=== PATIENT | female | born 1995 | race Caucasian/White ===

== ENCOUNTER → 2022-10-13 | Outpatient (CLI) | payer MEDICAID, SELFPAY ==
[2022-10-13 10:40] LABS: Absolute Lymphocyte Count 1.85 X10^3/uL (0.83-4.51); Absolute Neutrophil Count 3.7 X10^3/uL (2.0-7.7); Basophil# 0.04 X10^3/uL; Basophil% 0.7 % (0-1); Eosinophil# 0.09 X10^3/uL; Eosinophils% 1.5 % (0-5); Hematocrit 39.7 % (37-47); Hemoglobin 13.4 g/dL (12.0-15.0); Lymphocyte # 1.85 X10^3/ul (0.83-4.51); Lymphocyte % 30.7 % (19-41); Mean Corp Hgb Conc 33.8 g/dL (32-36); Mean Corpuscular Hgb 29.2 pg (27.0-32.0); Mean Corpuscular Volume 86.5 fL (81-99); Mean Platelet Vol. 9.4 fl (6.2-12.0); Monocyte# 0.36 X10^3/uL; NRBC Flagged by Analyzer 0 % (0-5); Neutrophil # 3.66 X10^3/uL (2.7-7.7); Neutrophil % 60.8 % (47-70); Platelet Count 317 K/mm3 (150-450); RBC Distribution Width CV 11.9 % (11.6-14.6); RBC Distribution Width SD 37.7 fl (35.1-43.9); Red Blood Count 4.59 M/mm3 (4.2-5.4)
[2022-10-13 11:26] LABS: NATERA MAILED SPECIMEN
[2022-10-13 11:52] LABS: HIV - WCH Non-Reactive (Nonreactive); Hepatitis B Surface Antigen Non-Reactive (Nonreactive); Hepatitis C Antibody Non-Reactive (Nonreactive); Rubella IgG Non-Reactive (Nonreactive); Syphilis Antibodies Non-reactive
[2022-10-17 07:07] LABS: Chlamydia By Nucleic Acid AMP Negative (Negative); Gonococcus By Nucleic Acid AMP Negative (Negative)
[2022-10-21 20:43] LABS: HPV Reflexed? NOT INDICATED
== END | disposition home or self-care (01) ==
PROVIDERS: Referring Provider Obstetrics & Gynecology; Visit Provider Obstetrics & Gynecology
DX: O09.90 Supervision of high risk pregnancy, unspecified, unspecified trimester (principal); Z3A.00 Weeks of gestation of pregnancy not specified
CPT/HCPCS: 36415; 85025; 86703; 86762; 86780; 86803; 86850; 86900; 86901; 87086; 87088; 87186; 87340; 87491; 87591; 88175; G0145

== ENCOUNTER 2022-12-22 18:55 | Inpatient (IN) | payer MEDICAID, SELFPAY ==
--- NOTE | 2022-12-22 | PLAC_PTH ---
PATIENT: HUE PERALTA LOC: WP U#:[id number] AGE/SX: 27 ROOM: WP021 RE12/22/[address]: Dr. Mariela Abbasi MD : 1995 BED: 1 DIS: 12/23/2022 SPEC #: [id number] RECD: 12/23/22 10:40 STATUS: ISAMAR LILIA #: [id number] ESPERANZA: 12/22/22 00:[address]: Mariela Abbasi DEPT: SURGICAL PATHOLOGY RECD BY: Evangelista Carroll Tissues: Placenta, NOS Procedures: Surgery Specimen Level V HEADER OPERATION: Vaginal delivery PRE-OP DIAGNOSIS: demise TISSUE SUBMITTED: Placenta MICROSCOPIC DIAGNOSIS Ballesteros placenta (117 gm): Placental disc: Immature placenta consistent with age. Focal acute vasculitis of superficial placental vessels. Mild chronic deciduitis. Mildly increased intraparenchymal fibrin plaques. Benign inclusion cysts. Umbilical Cord: Trivascular with no inflammation. Placental membranes: No pathologic change. AM:gonzalez 12/27/2022 MICROSCOPIC DESCRIPTION Slides are reviewed. GROSS DESCRIPTION SPECIMEN: PLACENTA / CLINICAL INFORMATION: A. Weight: Not noted B. Gestational Age: 19 weeks C. Sex: Not noted PLACENTAL WEIGHT (POST FIXATION): 117 gm PLACENTAL DIMENSIONS: 10.5 x 10.0 x 2.0 cm PLACENTAL SHAPE: Usual ovoid PLACENTAL WEIGHT FOR GESTATIONAL AGE: Within 10-99th percentile MEMBRANES - Present A. Insertion: Marginal B. Site of rupture from edge: At edge of placental disc C. Color of membrane: Zeng-ravi D. Abnormalities: None UMBILICAL CORD - Present A. Color: Zeng-ravi B. Insertion: Central C. Length: 39.0 cm D. Diameter: 0.6 cm E. Number of vessels: Cannot be assessed due to small diameter. F. Abnormalities: None PLACENTAL DISC - Present A. Color of surface: Zeng-ravi B. surface abnormalities: Two cysts are noted close to the insertion of the umbilical cord measuring 0.7 and 1.5 cm in greatest dimension. C. Maternal cotyledons: Intact with minimal tears. Maternal surface is partly disrupted. D. Attached retro placental clot: No clot E. Cut surface: Dark red and spongy F. Lesions: None G. Separate clot: Multiple blood clots are noted at the end of the placenta weighing in aggregate 19 gm and measuring in aggregate 5.5 x 5.0 x 2.5 cm. SECTIONS SUBMITTED: 1. Membrane roll 2. Cord, end inked black 3. Body of placenta with cyst on surface 4. Placental disc, and maternal surfaces 5. Placental disc, and maternal surfaces 6. Placental disc, and maternal surfaces LUIS:gonzalez 12/26/2022 TC:2 CPT: 80580
[2022-12-22 19:37] VITALS: BMI 23.3
[2022-12-22] MEDS: Lactated Ringers 1,000 ML 50 ML IV (19:45)
[2022-12-22] MEDS: 0.9% Saline Lock 10 ML Syringe IV (19:45)
[2022-12-22 20:07] VITALS: BP 129/78; PULSE 79; O2SAT 96
[2022-12-22 20:13] LABS: Absolute Neutrophil Count 3.2 X10^3/uL (2.0-7.7); Basophil# 0.03 X10^3/uL; Basophil% 0.4 % (0-1); Eosinophil# 0.11 X10^3/uL; Eosinophils% 1.6 % (0-5); Hematocrit 35.7 % (37-47); Hemoglobin 11.9 g/dL (12.0-15.0); Lymphocyte % 40.2 % (19-41); Mean Corp Hgb Conc 33.3 g/dL (32-36); Mean Corpuscular Volume 89.9 fL (81-99); Mean Platelet Vol. 10.3 fl (6.2-12.0); Monocyte# 0.66 X10^3/uL; Monocyte% 9.8 % (0-10); NRBC Flagged by Analyzer 0 % (0-5); Neutrophil # 3.17 X10^3/uL (2.7-7.7); Neutrophil % 47.4 % (47-70); Platelet Count 270 K/mm3 (150-450); RBC Distribution Width CV 13.1 % (11.6-14.6); RBC Distribution Width SD 42.9 fl (35.1-43.9); Red Blood Count 3.97 M/mm3 (4.2-5.4); White Blood Count 6.7 K/mm3 (4.4-11.0)
[2022-12-22 20:31] LABS: Thyroid Stim Hormone (TSH) 3.26 uIU/mL (0.358-3.74)
[2022-12-22 20:51] LABS: Syphilis Antibodies Non-reactive
--- NOTE | 2022-12-22 21:42 | HP.PCM.OB_ITS ---
HPI - General General Date of Admission: 12/22/22 HPI Narrative HUE PERALTA, is a 27 F who presents with IUFD diagnosed at anatomy scan. she denies any vb lof. Maternal Data Information MOE Calculator Estimated Delivery Date Method Current WG Current Estimate 05/17/23 LMP (Certain) 19w 2d Other Estimates 05/18/23 Ultrasound #1 19w 1d PFSH PFSH Medical History (Updated 12/22/22 @ 19:47 by Marifer Graves) Headache depression Home Medications PNV no.63-iron,carbonyl 27mg-folic acid 800 mcg-dha 200 mg capsule 1 cap PO DAILY 10/06/22 [History Last Taken 12/21/22] doxylamine 10 mg-pyridoxine (vit B6) 10 mg tablet,delayed release (Diclegis) 1 tab PO TID PRN nausea 30 days #60 tabs 11/17/22 [Rx Last Taken 12/22/22] Allergy/AdvReac Type Severity Reaction Status Date / Time No Known Allergies Allergy Verified 12/22/22 19:39 Family History Sister Kidney disease Surgical History Hx of section Social History adopted: No household members: family number of children: 2 current occupational status: employed current occupation: sub teacher pets and animals: Yes pets and animals: dog(s) history of recent travel: No sexually active: Yes Smoking Status: Never smoker alcohol intake: never substance use type: does not use caffeine: Yes Type: carbonated beverages seatbelt use: always do you feel safe at home: Yes additional social history: - Christian History 3 Elective abortions Hx Para 2 Spontaneous abortions Hx # Term Pregnancies 2 Ectopic pregnancies Hx # Pregnancies Multiple births # of living children 2 Past Pregnancies Del. Date Name GA/Weeks Outcome Route Bth Weight Infant Gen Labor Lgth Anesthesia Del Locatn Provider FOB 05/23/18 Nahid 40 live - full term 8lbs 4oz Male epi dural union 01/15/21 Inze 40 live - full term 7lbs 3oz Female epidural pitkin Visit Details Expected Delivery Route/Plan TOLAC patient counseled regarding risks/benefits of trial of labor versus repeat . ACOG/uptodate education given to patient. [] % likelihood of success per calculator TOLAC consent form signed: [] Labor Preferences- CB/BF classes: [] labor support person: [] labor intervention preferences: [] pain management options preferred: [] cut cord/dad catch: [] : [] PP control planned: [] discussed possible routes of delivery and associated risks: [] special requests: [] Plans Covid status: [] Flu vaccine: [] Tdap vaccine: [] Rhogam: [] LARC form signed: [] Problem list reviewed and updated with the most current plan of care details and appropriate orders placed. Relevant counseling for the gestational age provided. Continue routine care and follow up unless otherwise noted in visit notes/problem list details OB Flowsheet Initial Weight: Not Recorded Date -?-?-?-?-?-?-?-?-?-?-?-?- EGA Weight BP Urine Prot -?-?-?-?-?-?-?-?-?-?-?-?- Glucose FHR FuHt Pres Dilation -?-?-?-?-?-?-?-?-?-?-?-?- Effaced St Visit Note 10/13/22 -?-?-?-?-?-?-?-?-?-?-?-?- 9w 1d 119 lb 118/76 -?-?-?-?-?-?-?-?-?-?-?-?- 175 -?-?-?-?-?-?-?-?-?-?-?-?- SM- CRL 2 cm con s with LMP 11/17/22 -?-?-?-?-?-?-?-?-?-?-?-?- 14w 1d 118 lb 4 oz 122/74 1+ -?-?-?-?-?-?-?-?-?-?-?-?- Negative 169 -?-?-?-?-?-?-?-?-?-?-?-?- JV- lots of ques tions today. girl on nipt! plan for 41 week rpt section if no labor. 12/14/22 -?-?-?-?-?-?-?-?-?-?-?-?- 18w 0d 124 lb 120/70 Negative -?-?-?-?-?-?-?-?-?-?-?-?- Negative 163 -?-?-?-?-?-?-?-?-?-?-?-?- MH-No VB Nausea improved. 12/21/22 -?-?-?-?-?-?-?-?-?-?-?-?- 19w 0d 133/88 -?-?-?-?-?-?-?-?-?-?-?-?- -?-?-?-?-?-?-?-?-?-?-?-?- JV- pt was in to see [facility] today for her anatomy scan. She was found to have a demise measuring 16 weeks 5 days. we discussed that because heart tones were heard last week, this likely was a case of growth restriction caused by an unknown cause at this time. we discussed treatment options and she would like to hold the baby if possible. plan for IOL tomorrow night. ROS Constitutional Constitutional: Reports systems reviewed and no addt'l complaints, except as documented Eyes Eyes: Denies change in vision ENT HEENT: Reports systems reviewed and no addt'l complaints, except as documented; Denies headache(s) Cardiovascular Cardiovascular: Reports systems reviewed and no addt'l complaints, except as documented; Denies chest pain or dyspnea Respiratory/Chest Respiratory/Chest: Reports systems reviewed and no addt'l complaints, except as documented Gastrointestinal Gastrointestinal: Reports systems reviewed and no addt'l complaints, except as documented; Denies abdominal pain Genitourinary Genitourinary: Reports systems reviewed and no addt'l complaints, except as documented, contractions Details: present (irregular) and movement De tails: present; Denies dysuria or genital lesions Musculoskeletal Musculoskeletal: Reports systems reviewed and no addt'l complaints, except as documented Neurologic Neurologic: Reports systems reviewed and no addt'l complaints, except as documented Endocrine Endocrinology: Reports systems reviewed and no addt'l complaints, except as documented Vital Signs Vital Signs Vital Signs: 12/22/22 20:07 12/22/22 20:07 12/22/22 20:07 Pulse Rate 79 Blood Pressure 129/78 H BP Systolic 129 BP Diastolic 78 Pulse Ox 96 Weight Weight: 123 lb 7.342 oz Body Mass Index (BMI) 23.3 Physical Exam Const alert, oriented x3, no apparent distress and healthy appearing HEENT normocephalic and moist oral mucous membranes Head and Scalp: atraumatic Neck full ROM, no lymphadenopathy, supple and thyroid normal General: trachea midline Lymph Lymphatic: no lymphadenopathy noted Chest inspection of chest normal Resp normal respiratory effort Cardio regular rate GI normal to inspection, nondistended, normoactive bowel sounds, soft to palpation and non-tender Inspection: gravid Extremity normal to inspection General Extremity: Negative for edema Skin no rashes or lesions noted Neuro no focal motor deficits and deep tendon reflexes 2+ bilaterally Motor Exam: strength 5/5 throughout and clonus absent Psych mental status grossly normal Labs Labs Labs: Blood Type O POSITIVE Antibody Screen NEGATIVE Hct 35.7 % (37-47) L Hgb 11.9 g/dL (12.0-15.0) L Syphilis Total Ab Non-reactive Rubella IgG Antibody Non-Reactive (Nonreactive) Hep Bs Antigen Non-Reactive (Nonreactive) Chlamydia DNA (AUGUSTUS) Negative (Negative) Neisseria gonorrhoeae DNA (AUGUSTUS) Negative (Negative) HIV 1&2 Antibody Non-Reactive (Nonreactive) Miscellaneous Test Pending Assessment & Plan (1) demise: COMMENT: 19 weeks gestation (2) Rubella non-immune status, antepartum: COMMENT: MMR pp (3) GBS (group B Streptococcus carrier), +RV culture, currently : COMMENT: PCN in labor (4) Nausea and vomiting in : COMMENT: improved (5) Previous delivery affecting : COMMENT: 8 lb baby then cs after pushing 3 hrs 7lb baby- asynclitic. plan TOLAC (6) Desires (vaginal after ) trial: COMMENT: C/S-second for malpresentation (7) Supervision of high risk , antepartum: COMMENT: PRR MOE 05/17/23 PC Inez Whitfield Christian (8) : QUALIFIERS: Weeks of gestation: 14 weeks Qualified Code(s): Z3A.14 - 14 weeks gestation of COMMENT: NIPT low risk PLAN: Plan proceed with cytotec IOL. labs ordered
[2022-12-22] MEDS: miSOPROStol 200 MCG Tablet 600 MCG VAGINAL (21:56)
[2022-12-22 22:11] VITALS: BP 132/84; PULSE 68; TEMP 36.6; O2SAT 97
[2022-12-23] VITALS (22 sets, daily range): BP systolic 101–134; BP diastolic 60–83; PULSE 69–101; RESP 16; TEMP 36.2–37.6; O2SAT 95–98
[2022-12-23] MEDS: miSOPROStol 200 MCG Tablet 400 MCG VAGINAL (02:00)
[2022-12-23] MEDS: fentaNYL 100 MCG/2 ML Ampul IV ×2 (04:46→06:59)
[2022-12-23] MEDS: 0.9% Saline Lock 10 ML Syringe IV (04:47)
[2022-12-23] MEDS: oxyCODONE 5 MG Tablet PO (06:27)
[2022-12-23] MEDS: Oxytocin 15 Units/NS 250ml 15 UNITS/250 ML IV.SOLN 83 UNITS IV (08:10)
[2022-12-23] MEDS: Oxytocin 10 UNITS/ML Vial IM (08:12)
[2022-12-23 09:36] LABS: Pathology Specimen OB SEE PATHOLOGY REPORT
--- NOTE | 2022-12-23 10:25 | EX.PCM.OBRPT ---
Assessment & Plan (1) demise: COMMENT: 19 weeks gestation (2) Rubella non-immune status, antepartum: COMMENT: MMR pp (3) GBS (group B Streptococcus carrier), +RV culture, currently : COMMENT: PCN in labor (4) Nausea and vomiting in : COMMENT: improved (5) Previous delivery affecting : COMMENT: 8 lb baby then cs after pushing 3 hrs 7lb baby- asynclitic. plan TOLAC (6) Desires (vaginal after ) trial: COMMENT: C/S-second for malpresentation (7) Supervision of high risk , antepartum: COMMENT: PRR MOE 05/17/23 PC NahidInez Christian (8) : QUALIFIERS: Weeks of gestation: 14 weeks Qualified Code(s): Z3A.14 - 14 weeks gestation of COMMENT: NIPT low risk (9) Vaginal delivery: COMMENT: demise 19 week IOL 19 week girl Elaine Maternal Data Information MOE Calculator Estimated Delivery Date Method Current WG Current Estimate 05/17/23 LMP (Certain) 19w 2d Other Estimates 05/18/23 Ultrasound #1 19w 1d Vaginal Delivery Operative Information Date of Procedure: 12/23/22 Pre-Operative Diagnosis: see a/p diagnoses Post-Operative Diagnosis: same Surgery / Procedure Performed: Type of Anesthesia: None Special Medications: none Estimated Blood Loss: 400 Fluids Replaced: crystalloid Findings Description of Procedure: bedside ultrasound was performed upon initial evaluation and induction and confirmed demise with no FHT prsent or color flow, normal cody. infant vertex. patient was induced with cytotec overnight, managed pain with fentayl and oral oxy. ; she had increased cramping and was 3 cm dilated, deliver spontaneously the entire infant without complicated. the cord was cute, no gross abnormalities seen to the fetus or the cord. The perineum and vagina were inspected and noted to have no laceration. EBL was 400cc after the placenta delivered spontaneously over an hour later and was noted to be intact with no abnormalities seen. Patient tolerated delivery well. Placental Delivery Description: Spontaneous Placenta Disposition: [facility] Cord Vessel Description: 3 Vessels Cord Entanglement: None Post Vaginal Delivery Medications Given After Delivery: - (Pitocin) Episiotomy Description: None Complication Complications: None Procedures Urinary/Genital 52xxx-59xxx: [id number] delivery only
--- NOTE | 2022-12-23 10:32 | DCINST_ITS ---
Discharge Instructions Diet Discharge Diet: No restrictions Activity Discharge Activity: Return to Normal Activity, May Not Drive (while taking narcotic pain medications.) and May Shower May resume sexual activity in: 4-6 weeks Dressing / Incision Call your doctor if your incision/area has: Continuous Slow Oozing, Sudden Increased Bleeding, Increased Pain/ Swelling, Increased Redness and Foul Smelling Discharge Follow Up Care Please Follow Up With: Mariela Abbasi MD When: Call [phone] to make an appointment with your doctor in 6 weeks. If you had elevated blood pressure or 4th degree laceration, you will need to be seen in 2 weeks. Test Results: Test results from this visit will be discussed in further detail at your follow- up appointment, if applicable. Discharge Plan Admission Admit Date/Time: 12/22/22 18:55 Attending Provider: Mariela Abbasi Discharge Orders/Prescriptions Prescriptions: No Action PNV no.63-iron,yxyjzqxi-VT-een 27 mg iron- 800 mcg-200 mg capsule 1 cap PO DAILY doxylamine-pyridoxine (vit B6) [Diclegis] 10-10 mg tablet,delayed release (DR/EC) 1 tab PO TID PRN (Reason: nausea) 30 Days Qty: 60 4RF
--- NOTE | 2022-12-23 10:35 | NURSING ---
1035- IBCLC in room to round with family. Pt. expressed desire to maybe pump and donate her milk if it comes in, in honor of infant. Discussion had on pumping, breast stimulation, and ways to use/donate milk if pt desires. Encouragement and support given. Pt and FOB well engaged in conversation and appreciative of support. Pt. is still currently nursing her 2 year old.
--- NOTE | 2022-12-23 11:09 | CHAPLAIN ---
Type of Pastoral Visit _x__ Initial Visit ___ Follow-up Visit ___ On-call Visit ___ General Patient Visit ___ Spiritual Assessment ___ Family Conference _x__ Bereavement ___ Rapid Response ___ Code Blue ___ Other (describe below) Pastoral Care Referral From _x__ Patient _x__ Family _x__ Nurse ___ Physician ___ Care Information Associate ___ Coiled Tubing Operator ___ Other (describe below) Sacrament/Intervention _x__ Active listening ___ Anointing _x__ Protestant _x__ Bereavement ___ Communion ___ Leelee exploration ___ ___ Life review _x__ Prayer ___ Reconciliation ___ Sacrament of Sick _x__ Supportive presence ___ Wedding ___ Other (describe below) Pastoral Comments demise of the infant; parents requested episcopal for infant; met with parents for support and comfort; officiated episcopal and offered white susanna, blanket, and certificate; time to support in grief, presence and prayer
--- NOTE | 2022-12-23 15:18 | CASEMGMT ---
Social Work Labor and Delivery Unit ? Summary:?Sw received social work consult due to mother of baby (NUVIA Mcclain) coming into unit due to discovering demise when she went to her 20 week anatomy appointment. - Sw spoke to bedside RN to discuss current level of distress/ social concern. Bedside RN stated patient had delivered and they are processing their grief appropriately. - Sw presented to bedside and introduced self to patient and her . Sw provided active listening and ongoing emotional support. - Sw provided parents with the space to say what they wanted and to ask any questions. - Sw provided parents with literature to help them process their loss, and assessed for any needs or other concerns. - Parents state that they have a lot of supports from family members, friends and their sikh. Parents denied any needs at this time. ? Assessment:??Parents observed to be grieving appropriately given their dire circumstances. Parents asked appropriate questions about how to have this difficult conversation with their children. observed to be very supportive, loving and caring towards patient. ? Intervention:?Activev listening, counseling, support and space provided to parents to process their loss as they needed. ? Plan:??When medically ready patient will be discharged and baby will be picked up by Home chosen by parents. ? No other services requested or indicated. Royal Mosquera, SEISMOGRAPH OPERATOR, BALLET TEACHER
--- NOTE | 2022-12-28 20:28 | NURSING ---
Follow up phone call completed by this RN Pt reports feeling a sense of peace since delivery of her daughter Elaine at 19.1 weeks. Pt told this RN she is eating and sleeping, feels as her and her are coping well with the loss of Elaine at this time. Pt encouraged to reach out to or [facility] if she feels as her family need additional resources. Pt agreeable to this. Pts initial plan was to become a breast milk donor. pt reports pumping became overwhelming to her and was saddened she did not have a baby at home to breastfeed. pts plan at this time is to stop pumping to encourage milk production. pt encouraged to call unit if questions arise for .
== END 2022-12-23 12:40 | disposition home or self-care (01) | DRG 560 ==
PROVIDERS: Admitting Provider Obstetrics & Gynecology; Visit Provider Obstetrics & Gynecology
DX: O36.4XX0 Maternal care for intrauterine death, not applicable or unspecified (principal); Z37.1 Single stillbirth; O21.0 Mild hyperemesis gravidarum; O34.219 Maternal care for unspecified type scar from previous cesarean delivery; O99.824 Streptococcus B carrier state complicating childbirth; Z3A.19 19 weeks gestation of pregnancy
CPT/HCPCS: 76815; 83036; 84443; 85025; 86780; 86850; 86900; 86901; 88307; 99221; J7120; A4216; G0378

== ENCOUNTER → 2023-03-17 | Outpatient (CLI) | payer MEDICAID, SELFPAY ==
[2023-03-17 13:33] LABS: hCG Titer Quant., Serum 29 mIU/mL (1-3)
[2023-03-21 16:09] LABS: Anti-Cardiolipin Ab, IgA, Qn < 9 APL U/mL (0-11); Anti-Cardiolipin Ab, IgG, Qn < 9 GPL U/mL (0-14); Anti-Cardiolipin Ab, IgM, Qn 13 MPL U/mL (0-12); Beta-2-Glycoprotein I IgA <9 (0-25); Beta-2-Glycoprotein I IgG <9 (0-20); Beta-2-Glycoprotein I IgM <9 (0-32); Dilute Prothrombin Time (dPT) 38.8 sec (0.0-47.6); Dilute Russell Viper Venom 40.8 sec (0.0-47.0); Interpretation Comment: (.); PTT-LA 36.8 sec (0.0-43.5); Thrombin Time 19.4 sec (0.0-23.0); dPT Confirm Ratio 1.05 Ratio (0.00-1.34)
== END | disposition home or self-care (01) ==
LOC: LAB 11:57
PROVIDERS: Referring Provider Obstetrics & Gynecology; Visit Provider Obstetrics & Gynecology
DX: N96 Recurrent pregnancy loss (principal); N91.2 Amenorrhea, unspecified
CPT/HCPCS: 36415; 84702; 86146; 86147

== ENCOUNTER → 2023-03-19 | Outpatient (CLI) | payer MEDICAID, SELFPAY ==
[2023-03-19 11:21] LABS: hCG Titer Quant., Serum 32 mIU/mL (1-3)
== END | disposition home or self-care (01) ==
LOC: LAB 10:34
PROVIDERS: Visit Provider Obstetrics & Gynecology
DX: O26.859 Spotting complicating pregnancy, unspecified trimester (principal); Z3A.00 Weeks of gestation of pregnancy not specified
CPT/HCPCS: 36415; 84702

== ENCOUNTER → 2023-03-21 | Outpatient (CLI) | payer MEDICAID, SELFPAY ==
[2023-03-21 11:41] LABS: hCG Titer Quant., Serum 31 mIU/mL (1-3)
== END | disposition home or self-care (01) ==
LOC: PAVLAB 10:15
PROVIDERS: Referring Provider Obstetrics & Gynecology; Visit Provider Obstetrics & Gynecology
DX: N91.2 Amenorrhea, unspecified (principal)
CPT/HCPCS: 36415; 84702

== ENCOUNTER 2023-03-23 15:21 | Emergency (ER) | payer MEDICAID, SELFPAY ==
[2023-03-23 15:23] VITALS: BP 135/66; PULSE 120; RESP 19; TEMP 36.6; O2SAT 98
--- NOTE | 2023-03-23 15:38 | US_ITS ---
STUDY: FIRST TRIMESTER OBSTETRICAL ULTRASOUND REASON FOR EXAM: Female, 27 years old / LMP: TECHNIQUE: Transvaginal TECHNICAL QUALITY: Adequate. PRIOR ULTRASOUND: None. FINDINGS: There is no evidence for intrauterine gestational sac. The uterus measures 8.4 x 4.2 x 4 cm. There is no demonstrated uterine fibroid. The cervix is closed. The right ovary measures 1.5 x 1.5 x 1.8 cm. There is no right ovarian cyst. There is no visualized right adnexal mass or complex lesion. The left ovary measures 4.3 x 3.4 x 3.5 cm. There is no left ovarian cyst. There is a complex cystic mass measuring 4.1 x 2.8 x 3 cm. There is minimal fluid in the cul de sac. US/Transvaginal w/Preg US IMPRESSION: No evidence for intrauterine gestational sac Complex cystic mass in left adnexa measuring 4.1 x 2.8 x 3 cm with trace of fluid in the cul-de-sac. Ectopic is not excluded. Clinical correlation is recommended and follow-up studies Electronically Signed: Sincere Chang MD at 17:40 EDT ,
--- NOTE | 2023-03-23 15:40 | ED.VIS.FEGU ---
HPI HPI - Female History of Present Illness Chief Complaint: Narrative Narrative: 27-year-old female G3, P2 believed to have miscarried last week. She states he was passing tissue and clots. She had some spotting. Apparently her hCG numbers are going down but they are not going up they are staying in the 30s. Patient denies any pain. She denies any nausea or vomiting. She was told to come to the ER to rule out ectopic because her hCG had gone up to 36 PFSH PFSH Medical History demise Headache depression Vaginal delivery Home Medications PNV no.63-iron,carbonyl 27mg-folic acid 800 mcg-dha 200 mg capsule 1 cap PO DAILY 10/06/22 [History Last Taken 12/21/22] Allergy/AdvReac Type Severity Reaction Status Date / Time No Known Allergies Allergy Verified 03/23/23 15:23 Family History Sister Kidney disease Surgical History Hx of section Social History adopted: No household members: family number of children: 2 current occupational status: employed current occupation: sub teacher pets and animals: Yes pets and animals: dog(s) history of recent travel: No sexually active: Yes Smoking Status: Never smoker alcohol intake: never substance use type: does not use caffeine: Yes Type: carbonated beverages seatbelt use: always do you feel safe at home: Yes additional social history: - Christian ROS ROS ED Constitutional Constitutional ED: Denies chills, fever(s) or sweats Eyes Eyes: Denies blurry vision or change in vision ENT ENT ED: Denies ear pain or sore throat Cardiovascular Cardiovascular: Denies chest pain, palpitations or racing heartbeat Respiratory/Chest Respiratory/Chest: Denies cough, dyspnea or sputum Gastrointestinal Gastrointestinal: Denies abdominal pain, constipation, diarrhea, nausea or vomiting Genitourinary Genitourinary ED: Reports other Details: Vaginal spotting, passage of tissue and clot ; Denies dysuria, hematuria or urinary frequency Musculoskeletal Musculoskeletal: Denies arthralgias, myalgias or neck pain Integumentary Denies abscess, Abrasions or rash Neurologic Neurologic: Denies headache(s), paresthesias or weakness Psychiatric Psychiatric: Denies anxiety, depression, suicidal ideation or suicidal thoughts Endocrine Endocrinology: Denies polydipsia or polyuria EXAM Physical Exam Const Vital Signs: 03/23/23 15:23 03/23/23 18:05 Temperature 97.8 F Temperature Source Temporal Pulse Rate 120 H Respiratory Rate 19 H 18 Blood Pressure 135/66 H Blood Pressure Mean 89 Pulse Ox 98 Oxygen Delivery Method Room Air Room Air Positive well nourished General Appearance ED: NAD HEENT Reports TM's clear and moist mucous membranes Tympanic Membrane ED: Yes TM's clear Eyes PERRL Resp normal respiratory effort Cardio regular rhythm Rate: tachycardic GI normal to inspection, nondistended, normoactive bowel sounds Neuro oriented x3 and CN's II-XII intact bilaterally Sensorium / Orientation: alert Psych mental status grossly normal Skin no rashes or lesions noted MDM MDM MDM Narrative Medical decision making narrative: Patient presenting with vaginal spotting. She still has hCGs which are not going down. These are actually going up slightly and the last one was 36. She sent to the ER to rule out ectopic but with a hCG of 36 this cannot be done. We will attempt to rule out retained products of conception. Patient does not require RhoGAM because she is O+. Obstetric ultrasound shows a 4.1 x 2.8 x 3 cm cystic mass in the left adnexa. There is a trace amount of fluid in the cul-de-sac. Discussed with Dr. Ayleen marroquin giving methotrexate. This was ordered and I personally injected this into the right gluteal region. Patient tolerated well. She is discharged home in stable condition. Return precautions discussed. Impression: 1. Left ovarian cyst 2. Concern for ectopic Radiography Diagnostic Testing: Clinical Impression(s) from Imaging Studies Obstetrics Ultrasound 03/23/23 15:38 IMPRESSION: No evidence for intrauterine gestational sac Complex cystic mass in left adnexa measuring 4.1 x 2.8 x 3 cm with trace of fluid in the cul-de-sac. Ectopic is not excluded. Clinical correlation is recommended and follow-up studies Electronically Signed: Sincere Chang MD at 17:40 EDT , Discharge Plan Triage Chief Complaint: ED Provider: Shakeel Sweeney Dx/Rx/DC Orders Instructions: ED Methotrexate for Ectopic ... Prescriptions: No Action PNV no.63-iron,ujsuyxoj-YW-zyh 27 mg iron- 800 mcg-200 mg capsule 1 cap PO DAILY Primary Care Provider: Care Physician,No Primary Referrals: Mariela Abbasi MD [Med Staff - Active Staff] - 3-5 Days Care Physician,No Primary [Primary Care Provider] - Disposition Disposition: Home, Self Care
[2023-03-23 18:04] VITALS: BMI 22.8
[2023-03-23 18:05] VITALS: RESP 18
== END 2023-03-23 20:56 | disposition home or self-care (01) ==
PROVIDERS: Emergency Provider Student in an Organized Health Care Education/Training Program; Visit Provider Student in an Organized Health Care Education/Training Program
DX: N83.202 Unspecified ovarian cyst, left side (principal)
CPT/HCPCS: 76817; 96372; 99282; J9250

== ENCOUNTER → 2023-03-23 | Outpatient (CLI) | payer MEDICAID, SELFPAY ==
[2023-03-23 11:11] LABS: hCG Titer Quant., Serum 39 mIU/mL (1-3)
== END | disposition home or self-care (01) ==
LOC: PAVLAB 10:27
PROVIDERS: Referring Provider Obstetrics & Gynecology; Visit Provider Obstetrics & Gynecology
DX: O36.80X0 Pregnancy with inconclusive fetal viability, not applicable or unspecified (principal); Z3A.00 Weeks of gestation of pregnancy not specified
CPT/HCPCS: 36415; 84702

== ENCOUNTER → 2023-03-27 | Outpatient (CLI) | payer MEDICAID, SELFPAY ==
[2023-03-27 12:08] LABS: hCG Titer Quant., Serum 51 mIU/mL (1-3)
== END | disposition home or self-care (01) ==
LOC: PAVLAB 09:54
PROVIDERS: Obstetrics & Gynecology; Referring Provider Obstetrics & Gynecology; Visit Provider Obstetrics & Gynecology
DX: O03.9 Complete or unspecified spontaneous abortion without complication (principal)
CPT/HCPCS: 36415; 84702

== ENCOUNTER → 2023-03-30 | Outpatient (CLI) | payer MEDICAID, SELFPAY ==
[2023-03-30 11:08] LABS: hCG Titer Quant., Serum 44 mIU/mL (1-3)
== END | disposition home or self-care (01) ==
PROVIDERS: Referring Provider Obstetrics & Gynecology; Visit Provider Obstetrics & Gynecology
DX: O00.90 Unspecified ectopic pregnancy without intrauterine pregnancy (principal)
CPT/HCPCS: 36415; 84702

== ENCOUNTER → 2023-12-12 | Outpatient (CLI) | payer MEDICAID, SELFPAY ==
[2023-12-12 14:08] LABS: hCG Titer Quant., Serum 263 mIU/mL (1-3)
[2023-12-18 16:09] LABS: Anti-Cardiolipin Ab, IgG, Qn < 9 GPL U/mL (0-14); Anti-Cardiolipin Ab, IgM, Qn 24 MPL U/mL (0-12); Beta-2-Glycoprotein I IgA <9 (0-25); Beta-2-Glycoprotein I IgG <9 (0-20); Beta-2-Glycoprotein I IgM <9 (0-32); Dilute Prothrombin Time (dPT) 46.1 sec (0.0-47.6); Interpretation Comment: (.); Thrombin Time 26.2 sec (0.0-23.0); dPT Confirm Ratio 1.51 Ratio (0.00-1.34)
== END | disposition home or self-care (01) ==
LOC: PAVLAB 13:13
PROVIDERS: Referring Provider Obstetrics & Gynecology; Visit Provider Obstetrics & Gynecology
DX: O26.20 Pregnancy care for patient with recurrent pregnancy loss, unspecified trimester (principal); O09.299 Supervision of pregnancy with other poor reproductive or obstetric history, unspecified trimester; Z3A.00 Weeks of gestation of pregnancy not specified
CPT/HCPCS: 36415; 84702; 86146; 86147

== ENCOUNTER → 2023-12-25 | Outpatient (CLI) | payer MEDICAID, SELFPAY ==
--- NOTE | 2023-12-25 07:55 | US_ITS ---
STUDY: FIRST TRIMESTER OBSTETRICAL ULTRASOUND REASON FOR EXAM: Female, 28 years old hx 19week loss, currently LMP: November 21, 2023. TECHNIQUE: Transvaginal TECHNICAL QUALITY: Adequate. PRIOR ULTRASOUND: None. FINDINGS: There is visualization of a single gestational sac in a normal intrauterine position. The mean sac diameter (MSD) measures 1.6 cm, indicating an estimated gestational age (EGA) of 6 weeks, 3 days. The gestational sac shape is within normal limits. There is a visualized yolk sac. The yolk sac measures 3.7 mm. The placenta is non-visualized. There is visualization of a live embryo. The crown-rump length (CRL) measures 2.9 mm, indicating an estimated gestational age (EGA) of 6 weeks, 1 days. There is demonstrated cardiac activity with a heart rate of 108 bpm. The estimated gestation age (EGA) by LMP is 6 weeks, 6 days. The estimated date of delivery (MOE) by LMP is August 13, 2024. The estimated gestation age (EGA) by US is 6 weeks, 2 days. The estimated date of delivery (MOE) by US is August 17, 2024. The uterus measures 10.3 cm x 5.9 cm x 5.4 cm. There is no demonstrated uterine fibroid. The cervix is closed. The right ovary measures 2.3 cm x 2.1 cm x 1.7 cm. There is no right ovarian cyst. There is no visualized right adnexal mass or complex lesion. The left ovary measures 3.3 cm x 3 cm x 3 cm. There is no left ovarian cyst. There is no visualized left adnexal mass or complex lesion. There is no fluid in the cul de sac. US/Transvaginal w/Preg US IMPRESSION: Single live intrauterine gestation with a mean gestational age of 6 weeks and 2 days. Electronically Signed: Antelmo Wheeler MD at 10:09 EDT ,
== END | disposition home or self-care (01) ==
LOC: OPUS 07:55
PROVIDERS: Referring Provider Obstetrics & Gynecology; Visit Provider Obstetrics & Gynecology
DX: O09.299 Supervision of pregnancy with other poor reproductive or obstetric history, unspecified trimester (principal); R76.0 Raised antibody titer; Z3A.00 Weeks of gestation of pregnancy not specified
CPT/HCPCS: 76817

== ENCOUNTER → 2024-01-11 | Outpatient (CLI) | payer MEDICAID, SELFPAY ==
[2024-01-16 11:59] LABS: Chlamydia By Nucleic Acid AMP Negative (Negative); Gonococcus By Nucleic Acid AMP Negative (Negative)
== END | disposition home or self-care (01) ==
PROVIDERS: Referring Provider Advanced Practice Midwife; Visit Provider Advanced Practice Midwife
DX: O09.90 Supervision of high risk pregnancy, unspecified, unspecified trimester (principal); Z3A.00 Weeks of gestation of pregnancy not specified; R76.0 Raised antibody titer
CPT/HCPCS: 87086; 87088; 87491; 87591

== ENCOUNTER → 2024-01-22 | Outpatient (CLI) | payer MEDICAID, SELFPAY ==
[2024-01-22 11:07] LABS: Absolute Lymphocyte Count 2.71 X10^3/uL (0.83-4.51); Absolute Neutrophil Count 2.3 X10^3/uL (2.0-7.7); Basophil# 0.04 X10^3/uL; Basophil% 0.7 % (0-1); Eosinophil# 0.07 X10^3/uL; Eosinophils% 1.3 % (0-5); Lymphocyte # 2.71 X10^3/ul (0.83-4.51); Lymphocyte % 49.9 % (19-41); Mean Corp Hgb Conc 34.3 g/dL (32-36); Mean Corpuscular Hgb 28.9 pg (27.0-32.0); Mean Corpuscular Volume 84.3 fL (81-99); Mean Platelet Vol. 8.8 fl (6.2-12.0); Monocyte# 0.32 X10^3/uL; Monocyte% 5.9 % (0-10); NRBC Flagged by Analyzer 0 % (0-5); Neutrophil # 2.28 X10^3/uL (2.7-7.7); Platelet Count 228 K/mm3 (150-450); RBC Distribution Width CV 12.4 % (11.6-14.6); RBC Distribution Width SD 37.4 fl (35.1-43.9); Red Blood Count 4.15 M/mm3 (4.2-5.4); White Blood Count 5.4 K/mm3 (4.4-11.0)
[2024-01-22 12:07] LABS: HIV - WCH Non-Reactive (Nonreactive); Hepatitis B Surface Antigen Non-Reactive (Nonreactive); Hepatitis C Antibody Non-Reactive (Nonreactive); Rubella IgG Non-Reactive (Nonreactive); Syphilis Antibodies Non-reactive
[2024-01-23 17:08] LABS: Anti-Cardiolipin Ab, IgG, Qn < 9 GPL U/mL (0-14); Anti-Cardiolipin Ab, IgM, Qn 13 MPL U/mL (0-12); Beta-2-Glycoprotein I IgA <9 (0-25); Beta-2-Glycoprotein I IgG <9 (0-20); Beta-2-Glycoprotein I IgM <9 (0-32); Dilute Prothrombin Time (dPT) 29.2 sec (0.0-47.6); Dilute Russell Viper Venom 31.1 sec (0.0-47.0); Interpretation Comment: (.); PTT-LA 35.2 sec (0.0-43.5); Thrombin Time 17.1 sec (0.0-23.0); dPT Confirm Ratio 0.99 Ratio (0.00-1.34)
== END | disposition home or self-care (01) ==
LOC: PAVLAB 10:20
PROVIDERS: Referring Provider Advanced Practice Midwife; Visit Provider Advanced Practice Midwife
DX: O09.90 Supervision of high risk pregnancy, unspecified, unspecified trimester (principal); R76.0 Raised antibody titer; N96 Recurrent pregnancy loss
CPT/HCPCS: 36415; 85025; 86146; 86147; 86703; 86762; 86780; 86803; 86850; 86900; 86901; 87340

== ENCOUNTER → 2024-05-06 | Outpatient (CLI) | payer MEDICAID, SELFPAY ==
[2024-05-06 10:22] LABS: Absolute Lymphocyte Count 2.24 X10^3/uL (0.83-4.51); Basophil# 0.06 X10^3/uL; Basophil% 0.9 % (0-1); Eosinophil# 0.07 X10^3/uL; Hematocrit 34.9 % (37-47); Hemoglobin 11.7 g/dL (12.0-15.0); Lymphocyte # 2.24 X10^3/ul (0.83-4.51); Lymphocyte % 31.8 % (19-41); Mean Corp Hgb Conc 33.5 g/dL (32-36); Mean Corpuscular Hgb 31.7 pg (27.0-32.0); Mean Corpuscular Volume 94.6 fL (81-99); Mean Platelet Vol. 9.8 fl (6.2-12.0); Monocyte# 0.46 X10^3/uL; Monocyte% 6.5 % (0-10); NRBC Flagged by Analyzer 0 % (0-5); Neutrophil # 3.96 X10^3/uL (2.7-7.7); Neutrophil % 56.2 % (47-70); Platelet Count 222 K/mm3 (150-450); RBC Distribution Width CV 12.5 % (11.6-14.6); RBC Distribution Width SD 43.1 fl (35.1-43.9); Red Blood Count 3.69 M/mm3 (4.2-5.4)
[2024-05-06 10:29] LABS: Glucose Challenge Gest 1H 50g 86 mg/dL (70-140)
[2024-05-06 11:18] LABS: HIV - WCH Non-Reactive (Nonreactive); Syphilis Antibodies Non-reactive
== END | disposition home or self-care (01) ==
LOC: BWCLAB 09:11
PROVIDERS: Obstetrics & Gynecology; Referring Provider Advanced Practice Midwife; Visit Provider Advanced Practice Midwife
DX: O09.92 Supervision of high risk pregnancy, unspecified, second trimester (principal); Z13.1 Encounter for screening for diabetes mellitus; Z3A.00 Weeks of gestation of pregnancy not specified
CPT/HCPCS: 36415; 82950; 85025; 86703; 86780

== ENCOUNTER → 2024-07-16 | Outpatient (CLI) | payer MEDICAID, SELFPAY | END | disposition home or self-care (01) | LOC: LABSPEC 11:44 | PROVIDERS: Referring Provider Obstetrics & Gynecology; Visit Provider Obstetrics & Gynecology | DX: O09.93 Supervision of high risk pregnancy, unspecified, third trimester (principal); Z3A.00 Weeks of gestation of pregnancy not specified | CPT/HCPCS: 87081 ==

== ENCOUNTER 2024-08-07 05:15 | Inpatient (IN) | payer MEDICAID, SELFPAY ==
[2024-08-07] VITALS (24 sets, daily range): BP systolic 96–137; BP diastolic 60–120; PULSE 78–149; RESP 16–97; TEMP 2.2–37.3; O2SAT 18–99; BMI 27.8
[2024-08-07] MEDS: Lactated Ringers 1,000 ML 999 ML IV (05:40)
[2024-08-07] MEDS: Acetaminophen 500 MG Tablet 1000 MG PO ×3 (06:06→18:56)
[2024-08-07 06:13] LABS: Absolute Lymphocyte Count 2.43 X10^3/uL (0.83-4.51); Absolute Neutrophil Count 3.6 X10^3/uL (2.0-7.7); Basophil# 0.03 X10^3/uL; Basophil% 0.4 % (0-1); Eosinophil# 0.06 X10^3/uL; Eosinophils% 0.9 % (0-5); Hematocrit 32.7 % (37-47); Hemoglobin 11.3 g/dL (12.0-15.0); Lymphocyte # 2.43 X10^3/ul (0.83-4.51); Lymphocyte % 35.8 % (19-41); Mean Corp Hgb Conc 34.6 g/dL (32-36); Mean Corpuscular Hgb 31.1 pg (27.0-32.0); Mean Corpuscular Volume 90.1 fL (81-99); Mean Platelet Vol. 10.8 fl (6.2-12.0); Monocyte# 0.52 X10^3/uL; Monocyte% 7.7 % (0-10); NRBC Flagged by Analyzer 0 % (0-5); Neutrophil # 3.63 X10^3/uL (2.7-7.7); Neutrophil % 53.6 % (47-70); Platelet Count 151 K/mm3 (150-450); RBC Distribution Width CV 12.4 % (11.6-14.6); RBC Distribution Width SD 40.3 fl (35.1-43.9); Red Blood Count 3.63 M/mm3 (4.2-5.4); White Blood Count 6.8 K/mm3 (4.4-11.0)
[2024-08-07] MEDS: Lactated Ringers 1,000 ML 150 ML IV (06:40)
[2024-08-07 06:52] LABS: Syphilis Antibodies Nonreactive (Nonreactive)
[2024-08-07] MEDS: Sodium Citrate/Citric Acid 30 ML UDC PO (06:52)
--- NOTE | 2024-08-07 07:13 | HP.PCM_ITS ---
History and Physical Intake Vital Signs 03/13/2409:04 07/25/2508:18 07/31/2508:30 07/31/2508:33 Height 5 ft 1 in 5 ft 1 in 5 ft 1 in 5 ft 1 in Weight: 147 lb BMI 27.8 BP 117/80 Intake Visit Reasons: 38 WK OB/NST Blend Technician Required: No Is patient in pain?: No Allergies No Known Allergies Allergy (Verified 07/31/24 09:30) Medications ?Medication ?Instructions ?Recorded ?Confirmed ?Type PNV no.63-iron,carbonyl 27mg-folic 1 cap PO DAILY 10/06/22 History acid 800 mcg-dha 200 mg capsule enoxaparin 40 mg/0.4 mL 40 mg (0.4 mL) subcut DAILY #4 mL 07/31/24 Rx subcutaneous syringe (Lovenox) aspirin 81 mg capsule 81 mg PO DAILY 01/05/24 07/31/24 History Last Menstrual Period: 11/07/23 Zika: Zika virus screening: Negative : No PFSH PFSH Medical History Ectopic Vaginal delivery depression Headache demise Surgical History Previous delivery affecting H/O foot surgery Hx of section Family History Sister Kidney diseaseMother Heart disease A Fib- ablation Social History adopted: No household members: spouse number of children: 2 current occupational status: employed current occupation: sub teacher pets and animals: Yes pets and animals: dog(s) history of recent travel: Yes ([place] in December) out of state: Yes out of country: No sexually active: Yes Smoking Status: Never smoker alcohol intake: never substance use type: does not use well-balanced diet: daily or most days caffeine: Yes Type: carbonated beverages Number of servings: 1 eating out: 1-3 times/week during the past year weight has: remained stable what type of physical activity do you participate in: none je/scientologist: Lutheran seatbelt use: always do you feel safe at home: Yes additional social history: - Christian History 5 Elective abortions Hx Para 2 Spontaneous abortions 1 Hx # Term Pregnancies 2 Ectopic pregnancies 1 Hx # Pregnancies Multiple births # of living children 2 Past Pregnancies Del. Date Name GA/Weeks Outcome Route Bth Weight Infant Gen Labor Lgth Anesthesia Del Locatn Provider FOB 05/23/18 Nahid 40 live - full term 8lbs 4oz Male epidural union 01/15/21 Inez 40 live - full term 7lbs 3oz Female epidural [place] 12/23/22 Elaine 19 spontaneous Female [facility] Marcanthony Delivery Date: 12/23/22 Last Updated by: Debora Francisco 19 wk demise, IOL HPI 38 WK OB/NST Details: HUE PERALTA is a 29 year old who presents for routine OB visit. OB Visit MOE Calculator Estimated Delivery Date Method Current WG Current Estimate 08/13/24 LMP (Certain) 38w 1d Other Estimates 08/17/24 Ultrasound #1 37w 4d 08/15/24 Ultrasound #2 37w 6d Expected Delivery Route/Plan RLTCS with Labor Preferences- CB/BF classes: no labor support person: Christian labor intervention preferences: [] pain management options preferred: [] cut cord/dad catch: [] : yes PP control planned: [] discussed possible routes of delivery and associated risks: [] special requests: [] Specific Issue/Plans Covid status: [] Flu vaccine: declined Tdap vaccine: declined Rhogam: na LARC form signed: yes Problem list reviewed and updated with the most current plan of care details and appropriate orders placed. Relevant counseling for the gestational age provided. Continue routine care and follow up unless otherwise noted in visit notes/problem list details Initial Weight: Not Recorded Date -?-?-?-?-?-?-?-?-?-?-?-?- EGA Weight BP Urine Prot -?-?-?-?-?-?-?-?-?-?-?-?- Glucose FHR FuHt Pres Dilation -?-?-?-?-?-?-?-?-?-?-?-?- Effaced St Visit Note 01/11/24-?-?-?-?-?-?-?-?-?-?-?-?- 9w 2d 117 lb 6 oz 113/74 -?-?-?-?-?-?-?-?-?-?-?-?- 171 -?-?-?-?-?-?-?-?-?-?-?-?- KW- CRL 20mm and cons with dates. Wants NIPT KW- CRL 20mm and cons with dates. Wants NIPT. [facility] consult for APL- on Lovenox and ASA 02/13/24-?-?-?-?-?-?-?-?-?-?-?-?- 14w 0d 118 lb 136/84 Negative -?-?-?-?-?-?-?-?-?-?-?-?- Negative 150 -?-?-?-?-?-?-?-?-?-?-?-?- SM- no vb cramping 03/13/24-?-?-?-?-?-?-?-?-?-?-?-?- 18w 1d 123 lb 126/86 Negative -?-?-?-?-?-?-?-?-?-?-?--?- Negative 154 -?-?-?-?-?-?-?-?-?-?-?-?- MH-No VB. Is feeling flutters. Anxious as this is stage of had last demise but never felt movement with that one. [facility] US next week 04/08/24-?-?-?-?-?-?-?-?-?-?-?-?- 21w 6d 129 lb 118/80 Negative -?-?-?-?-?-?-?-?-?-?-?-?- Negative 150 -?-?-?-?-?-?-?-?-?-?-?-?- SM- no vb lof good fm no regular ctx 05/06/24-?-?-?-?-?-?-?-?-?-?-?-?- 25w 6d 135 lb 4 oz 121/78 Negative -?-?-?-?-?-?-?-?-?-?-?-?- Negative 145 -?-?-?-?-?-?-?-?-?-?-?-?- SM- no vb lof good fm nor egular ctx had gct today 06/03/24-?--?-?-?-?-?-?-?-?-?-?-?- 29w 6d 139 lb 111/76 Negative -?-?-?-?-?-?-?-?-?-?-?-?- Negative 148 30 -?-?-?-?-?-?-?-?-?-?-?-?- MH-No VB, LOF. Good FM. Larc. 06/18/24-?-?-?-?-?-?-?-?-?-?-?-?- 32w 0d 139 lb 6 oz 111/77 Negative -?-?-?-?-?-?-?-?-?-?-?-?- Negative 140 -?-?-?-?-?-?-?-?-?-?-?-?- sm- NO VB LOF GOOD FM NO REUGLAR CTX 07/03/24-?-?-?-?-?-?-?-?-?-?-?-?- 34w 1d 142 lb 4 oz 108/73 Negative -?-?-?-?-?-?-?-?-?-?-?-?- Negative 150 34 -?-?-?-?-?-?-?-?-?-?-?-?- MH-Reactive NST. NO VB, LOF. Good Fm. Denies concerns 07/09/24-?-?-?-?-?-?-?-?-?-?-?-?- 35w 0d 142 lb 8 oz 108/72 Trace -?-?-?-?-?-?-?-?-?-?-?-?- Negative 150 -?-?-?-?-?-?-?-?-?-?-?-?- -NST only reactive 07/16/24-?-?-?-?-?-?-?-?-?-?-?-?- 36w 0d 146 lb 2 oz 116/78 Negative -?-?-?-?-?-?-?-?-?-?-?-?- Negative 150 -?-?-?-?-?-?-?-?-?-?-?-?- SM- no vb lof good fm no ergualr ctx 07/25/24-?-?-?-?-?-?-?-?-?-?-?-?- 37w 2d 145 lb 6 oz 110/77 Negative -?-?-?-?-?-?-?-?-?-?-?-?- Negative 140 -?-?-?-?-?-?-?-?-?-?-?-?- SM- no vb lof good fm no reuglar ctx 07/31/24-?-?-?-?-?-?-?-?-?-?-?-?- 38w 1d 147 lb 117/80 Negative -?-?-?-?-?-?-?-?-?-?-?-?- Negative 140 -?-?-?-?-?-?-?-?-?-?-?-?- SM- preop done ACOG First Trimester First Trimester: Desire for , Alcohol, Tobacco Cessation, Illicit/Recreational Drug/Substance Use, Intimate Partner Violence, Barriers to care, Unstable Housing, Communication Barriers, Environmental/Work Hazards, Anticipated Course of Care, Toxoplasmosis Precations, Use of Any medications, Sexual activity, Exercise, Dental Care, Sauna/Hot tub use, Seat Belt use, Childbirth classes/Hospital facilities, Travel, Indications for Ultrasound and Screening for Aneuploidy; Discussed Second Trimester Second Trimester: Signs and Symptoms of Labor, Selecting a care provider, Reproductive Life Planning & Contreception, Care Planning, Depression/Anxiety and Intimate Partner Violence; Discussed Tobacco Cessation Third Trimester Third Trimester: Pain Management Plans, Labor support person(s), Immediate Larc, Circumcision preference, Movement Monitoring, Signs and Symptoms of Preeclampsia, Feeding No , Lov[place] Education and Family Medical Leave or Disability Forms; Discussed Tobacco Cessation, Discussed Depression and Discussed Intimate Partner Violence ROS Const Reports system reviewed and no additional complaints, except as documented Card Reports system reviewed and no additional complaints, except as documented Resp Reports system reviewed and no additional complaints, except as documented GI Reports system reviewed and no additional complaints, except as documented and Reports nausea Reports system reviewed and no additional complaints, except as documented Musc Reports system reviewed and no additional complaints, except as documented Exam Const General: cooperative, healthy appearing, comfortable and anxious HENAK Head: normal to inspection Nose: external nose normal Face and sinus: normal facial exam Neck Neck: normal visual inspection, full ROM and no lymphadenopathy Thyroid: thyroid normal Chest Chest palpation & inspection: normal inspection of the chest Resp Effort & Inspection: normal respiratory effort GI Inspection: normal to inspection Palpation: soft and other (gravid uterus) Other: infant vertex and appropriate size for gestational age Other: Cervical Exam: Extrem General: pedal edema Office Procedures Non-stress Test Non-Stress Test Indications for Monitoring: Yes previous Heart Rate Baseline: 140 Heart Rate Variability: moderate Movement: Present Heart Rate Accelerations: Present Decelerations: Absent Contractions: Absent Impression: Yes Reactive Non-Stress Test Category 1 Results POC Urinalysis 2 Dip (Clinic) Office Urine Glucose Negative Last Edit by Darcy Garcia on 07/31/24 09:38 Office Urine Protein Negative Last Edit by Darcy Garcia on 07/31/24 09:38 Coding Level of Care Code Off vis,est,level 3 Diagnoses Previous delivery affecting O34.219 Supervision of high risk in third trimester O09.93 Trimester: third trimester 38 weeks gestation of Z3A.38 Weeks of gestation: 38 weeks History of ectopic Z87.59 Antiphospholipid antibody positive R76.0 Rubella non-immune status, antepartum O09.899; Z28.39 CPT Codes Non-Stress Test (04956) Assessment and Plan Assessment and Plan (1) Previous delivery affecting : Status: Acute Comment: growths q 4 weeks after 20 weeks, weekly nst 32 on RLTCS scheduled for 08/07 @ 7:15 with (2) Supervision of high-risk : Status: Acute Qualifiers: Trimester: third trimester Qualified Code(s): O09.93 - Supervision of high risk , unspecified, third trimester Comment: PRR,, MOE 08/13/24, surprise PC Inez Whitfield(), Christian (3) : Status: Acute Qualifiers: Weeks of gestation: 38 weeks Qualified Code(s): Z3A.38 - 38 weeks gestation of Comment: Neg GBS. NIPT low risk, nl anatomy (4) History of ectopic : Status: Acute (5) Antiphospholipid antibody positive: Status: Acute Comment: growth US q 4 weeks, weekly nsts 32 on, repeat ordered, on lovenox, on asa 81mg. mfm counseled regarding option to stop due to indeterminate level of apl, discussed with patient risks vs benefit. patient prefers staying on lovenox, discussed this is reasonable. (6) Rubella non-immune status, antepartum: Status: Acute Comment: MMR pp Orders: plan RLTCS Assessment & Plan Assessment/Plan (1) Previous delivery affecting : (2) Supervision of high-risk : QUALIFIERS: Trimester: third trimester Qualified Code(s): O09.93 - Supervision of high risk , unspecified, third trimester (3) : QUALIFIERS: Weeks of gestation: 38 weeks Qualified Code(s): Z3A.38 - 38 weeks gestation of (4) History of ectopic : (5) Antiphospholipid antibody positive: (6) Rubella non-immune status, antepartum:
[2024-08-07] MEDS: Cefazolin 2 GM in Syringe IV (07:20)
--- NOTE | 2024-08-07 08:01 | PCM.PRE.AN2 ---
ASA Classification* ASA Classification ASA Classification: 3 Assessment & Plan Anesthesia* Anesthesia Assessment Anesthesia Assessment: Discussed sedation and/or anesthesia options, risks, benefits, and alternatives with patient/parents/legal guardian/POA. Questions invited. The patient/parents/legal guardian/POA seems to understand and agrees to proceed with anesthesia plan. Reviewed the physical assessment, medical history, allergy history and patient home medications list prior to surgery/procedure/anesthetic and documented any changes. Performed airway and anesthesia risk assessments. Anesthesia Type Anesthesia Type: Spinal History Source History Obtained from:: Patient Anesthesia Focused Assessment* Temperature: 97.3 F Pulse Rate: 115 Blood Pressure: 123/76 Respiratory Rate: 16 Pulse Ox: 99 Oxygen Delivery Method: Room Air Airway Assessment Mouth opens: 2 cm Mallampati Score: II Teeth Condition: Intact Neck Range of motion (ROM): Full ROM Focused Labs Anesthesia Preop lab: CBC WBC 6.8 K/mm3 (4.4-11.0) 08/07/24 05:35 08/07/24 RBC 3.63 M/mm3 (4.2-5.4) L 08/07/24 05:35 08/07/24 Hgb 11.3 g/dL (12.0-15.0) L 08/07/24 05:35 08/07/24 Hct 32.7 % (37-47) L 08/07/24 05:35 08/07/24 Plt Count 151 K/mm3 (150-450) 08/07/24 05:35 08/07/24 CHEMISTRY TSH 3.26 uIU/mL (0.358-3.74) 12/22/22 19:45 12/22/22 COAG HCG, Quant 263 mIU/mL (1-3) H 12/12/23 13:30 12/12/23 Pre-Assessment Diagnosis/Proposed Procedure Planned Operative Procedure(s): C/S repeat Anesthesia History Anesthesia History - manager route: Anesthesia History - manager route Hx Hospitalization Any Problems With Anesthesia Cholinesterase deficiency You/Your Family Experience fever (hyperthermia) with Relationship Recent Exposure to Contagious Disease Does patient have nerve stimulator Patient instructed to have device shut off --Does patient have Pacemaker or ICD? When Was Last Pacemaker Check QUESTION #4 FULL TEXT: You/Your Family Experience fever (hyperthermia) with Anesthesia Any additional information?: No Last Oral Intake Last Oral intake: Last Oral Intake NPO since 21:30 08/07/24 05:46 Meds taken in AM with sips of water? Meds patient instructed to take am of surgery Any additional information?: No PONV PONV - manager route: PONV - manager route Female HX of Motion Sickness HX of N/V After Surgery Non-Smoker Duration of Surgery greater than 60 minutes Number of Risk Factors PONV Score Any additional information?: No Height & Weight Height & Weight: Anesthesia: Height & Weight Height 5 ft 1 in 08/07/24 05:15 Weight: 66.678 kg 08/07/24 05:15 Body Mass Index (BMI) 27.8 08/07/24 05:15 Respiratory Assessment Respiratory Assessment - manager route: Respiratory Tract Infection Hx - manager route Hx Respiratory Tract Infection Any additional information?: No STOP Sleep Apnea STOP Sleep Apnea - manager route: STOP Sleep Apnea - manager route Hx Hypertension Hx Sleep Apnea CPAP BIPAP Do you snore loudly (louder than talking or can be heard Do you often feel tired/ fatigued/ sleepy during daytime? Has anyone observed you stop breathing during sleep? STOP Results QUESTION #5 FULL TEXT : Do you snore loudly (louder than talking or can be heard through closed doors)? Any additional information?: No Tobacco Use History Tobacco Use History - manager route: Tobacco Use History - manager route Tobacco Use Smoking Status Never smoker 08/07/24 05:32 Hx Tobacco Use No 08/07/24 05:32 Years Smoking Packs Smoked per Day Smoking Cessation Date was within the last 15 years Hx Smoking Cessation Date Hx Smoking Cessation Counseling Any additional information?: No Hematologic Medial History Hematologic Hx - manager route: Hematologic Medical Hx - upholstery handler Hx of Blood Transfusion Hx of Transfusion in last 3 Months Date of Last Transfusion (if within last 3 months) Ever experience any problems with transfusion(s)? Specify any problems Hx of Preganancy in last 3 Months Nurse Filling Out Transfusion & Questions: Date: Time: Patient unable to answer at this time (ie. confused, unrespo Any additional information?: No /Reproduction History /Reproductive History - manager route: /Reproductive Hx- manager route Hx Now Yes 08/07/24 05:32 Gestational Age (in weeks): 39 08/07/24 05:32 EDC: 08/13/24 08/07/24 05:32 Hx 5 08/07/24 05:32 Hx Para 2 08/07/24 05:32 Hx Section SAB 3 08/07/24 05:32 Yes 08/07/24 05:32 Any additional information?: No Active Medications Active Medications: Current Medications Generic Name Dose Route Start Last Admin Trade Name Freq PRN Reason Stop Dose Admin Enoxaparin Sodium 40 mg 08/07/24 21:00 Enoxaparin 40 Mg/0.4 Ml Syringe SC DAILY@2100 JOHN PAUL Lactated Ringer's 1,000 mls @ 150 mls/hr 08/07/24 05:15 08/07/24 06:40 IV 08/07/24 11:54 150 mls/hr .[id number] [facility] Administration Protocol Sodium Chloride 5 - 15 ml 08/07/24 05:15 0.9% Saline Lock 10 Ml Syringe IV PRN PRN SALINE FLUSH [facility] Medical History Family history of hearing loss at age younger than 7 years Blood clotting disorder depression Ectopic Vaginal delivery depression Headache demise Home Medications ?Medication ?Instructions ?Recorded ?Last Taken ?Type PNV no.63-iron,carbonyl 27mg-folic 1 cap PO DAILY 10/06/22 08/06/24 21:28 History acid 800 mcg-dha 200 mg capsule enoxaparin 40 mg/0.4 mL 40 mg (0.4 mL) subcut DAILY see 12/19/23 08/05/24 21:28 Rx subcutaneous syringe (Lovenox) provider #4 mL Allergy/AdvReac Type Severity Reaction Status Date / Time No Known Allergies Allergy Verified 08/07/24 05:27 Family History Sister Kidney disease Mother Heart disease A Fib- ablation Surgical History (Updated 08/07/24 @ 05:32 by Candelaria Russell) Previous section H/O foot surgery Previous delivery affecting Hx of section Social History adopted: No household members: spouse number of children: 2 current occupational status: employed current occupation: sub teacher pets and animals: Yes pets and animals: dog(s) history of recent travel: Yes ([place] in December) out of state: Yes out of country: No sexually active: Yes Smoking Status: Never smoker alcohol intake: never substance use type: does not use well-balanced diet: daily or most days caffeine: Yes Type: carbonated beverages Number of servings: 1 eating out: 1-3 times/week during the past year weight has: remained stable what type of physical activity do you participate in: none je/hoahaoism: Alevism seatbelt use: always do you feel safe at home: Yes additional social history: - Christian Review of Systems (Anesthesia) ROS Narrative System reviewed and no additional complaints, except as documented. Gastrointestinal Gastrointestinal: Reports heartburn Psychiatric Psychiatric: Reports anxiety Physical Exam Const alert and oriented x3 General Appearance: anxious Orientation / Consciousness: awake HEENT dentition normal Neck full ROM General: normal visual inspection Resp normal respiratory effort Cardio regular rate and regular rhythm Extremity full ROM Skin Rashes: no rashes Neuro oriented x3 and moves all extremities
--- NOTE | 2024-08-07 08:36 | EX.PCM.OBRPT ---
Assessment & Plan (1) Previous delivery affecting : COMMENT: growths q 4 weeks after 20 weeks, weekly nst 32 on RLTCS scheduled for 08/07 @ 7:15 with SM (2) Supervision of high-risk : QUALIFIERS: Trimester: third trimester Qualified Code(s): O09.93 - Supervision of high risk , unspecified, third trimester COMMENT: PRR,, MOE 08/13/24, surprise PC Inez Whitfield(), Christian (3) : QUALIFIERS: Weeks of gestation: 38 weeks Qualified Code(s): Z3A.38 - 38 weeks gestation of COMMENT: Neg GBS. NIPT low risk, nl anatomy (4) History of ectopic : (5) Antiphospholipid antibody positive: COMMENT: growth US q 4 weeks, weekly nsts 32 on, repeat ordered, on lovenox, on asa 81mg. mfm counseled regarding option to stop due to indeterminate level of apl, discussed with patient risks vs benefit. patient prefers staying on lovenox, discussed this is reasonable. (6) Rubella non-immune status, antepartum: COMMENT: MMR pp (7) delivery delivered: COMMENT: RLTCS SM boy 39 Maternal Data Information MOE Calculator Estimated Delivery Date Method Current WG Current Estimate 08/13/24 LMP (Certain) 39w 1d Other Estimates 08/17/24 Ultrasound #1 38w 4d 08/15/24 Ultrasound #2 38w 6d Operative Report (OB) Cecarean Details Procedure Type: low transverse Date of Procedure: 08/07/24 Procedure Start Time: 07:41 Procedure Stop Time: 08:44 Pre-Operative Diagnosis: Other Other Pre-Operative diagnosis: see a/p comments Post-Operative Diagnosis: Same as Pre-operative diagnosis Classification: Scheduled Type of Anesthesia: Spinal Special Medications: none Antibiotic Given: Ancef 2 grams IV x1 Drain: Diaz to straight drain Estimated Blood Loss: 600 Fluids Replaced: crystalloid Findings Description of surgery: Spinal anesthesia was placed without difficulty. Diaz catheter was placed. The patient was placed in the dorsal supine position with leftward tilt. Patient was prepped and draped in the normal sterile fashion. Pfannenstiel skin incision was made with the scalpel and carried through to the underlying layer of fascia with the scalpel. Fascia was nicked in the midline and the incision extended laterally. The rectus bellies were dissected off superiorly and inferiorly with out complication both sharply and bluntly. The peritoneum was entered digitally. The incision was stretched and a low transverse uterine incision was made with the scalpel. The 's head was delivered atraumatically followed by the anterior and posterior shoulders without complication the rest of the infant delivered. The cord was clamped and cut and the infant was handed off to awaiting nurse. The placenta was delivered spontaneously immediately following and was noted to be intact and have a three-vessel cord. The uterus was exteriorized cleared of all clots and debris, and the incision was closed in a single layer closure using #1 Monocryl. bilateral uterine venous plexuses were encountered with additional bleeding and oozing so additional suturing and hemoblast were needed, and an o leary stitch with 2-0 plain suture was placed on the left side, and then 3-0 monocryl was used to oversew the left myometrium successfully, hemoblast placed. ureter and IP ligament separate from suturing and posterior portion of the uterus hemostatic, no hematomas noted and hemostasis noted after returtning the uterus to the abdomen.T he ovaries and fallopian tubes were noted to be within normal limits. The gutters were cleared of all clots and debris. The peritoneum was closed with 3-0 Monocryl in a running fashion. Gloves were changed prior to fascial closure. Fascia was closed with 0 PDS in a running fashion. Subcutaneous tissue was copiously irrigated and the skin was closed with 3-0 Monocryl in a subcuticular fashion. Mepilex dressing was applied without complication. Patient was taken to recovery in stable condition. Surgical findings: nl uterus Amniotic Membrane Rupture Type: Artificial Amniotic Fluid Description: Clear Specimen collected: Yes Description of specimen(s) removed: Placenta Cord Vessel Description: 3 Vessels Cord Entanglement: Around neck x 1, loose Delayed Cord Clamping: Yes Production Welding Supervisor drawbench operator: Yes Metal Spray Operator: Eddie Null Tasks completed by boiler assistant operator: Opening & closing, Retracting and Other (Assisting with delivery of the ) Additional home care assistant?: No Complications Complications: No Admit VTE Documentation VTE Present on Admission: No VTE Mechan Device Prophylaxis: SCD's Procedures Urinary/Genital [id number]: 22443 delivery+PP Care([facility])
--- NOTE | 2024-08-07 08:47 | PCM.POST.ANE ---
Anesthesia: Postop Eval I Current Vital Signs Temperature: 36 F Pulse Rate: 98 Blood Pressure: 100/60 Respiratory Rate: 18 Pulse Ox: 97 Oxygen Delivery Method: Room Air Assessment Airway patent: Yes Spontaneous unlabored respirations: Yes Mental status: Awake and Calm nausea: No Vomiting: No Anesthesia Complication: No Fluid Hydration Crystalloid volume administer (ml): 2,000 Total IV fluid infused: 2,000 Progress Note Anesthesia document: Postop Eval 1 completed: Yes
[2024-08-07] MEDS: Oxytocin 15 Units/NS 250ml 15 UNITS/250 ML IV.SOLN 83 UNITS IV (09:09)
[2024-08-07] MEDS: 0.9% Saline Lock 10 ML Syringe IV ×2 (09:19→15:33)
[2024-08-07] MEDS: Ketorolac 30 MG/ML Syringe IV ×3 (09:19→21:29)
[2024-08-07] MEDS: Senna/Docusate Sodium 1 Tablet PO (09:59)
--- NOTE | 2024-08-07 10:57 | NURSING ---
Pt is rubella nonimmune per labs. MMR vaccine discussed with pt and fob. VIS handout given, pt is undecided at this time if she wants the MMR vaccine
[2024-08-07 14:12] LABS: Absolute Lymphocyte Count 1.39 X10^3/uL (0.83-4.51); Absolute Neutrophil Count 9.6 X10^3/uL (2.0-7.7); Basophil# 0.04 X10^3/uL; Basophil% 0.3 % (0-1); Hematocrit 31.7 % (37-47); Hemoglobin 10.8 g/dL (12.0-15.0); Lymphocyte # 1.39 X10^3/ul (0.83-4.51); Mean Corp Hgb Conc 34.1 g/dL (32-36); Mean Corpuscular Hgb 30.8 pg (27.0-32.0); Mean Corpuscular Volume 90.3 fL (81-99); Mean Platelet Vol. 10.4 fl (6.2-12.0); Monocyte# 0.45 X10^3/uL; Monocyte% 3.9 % (0-10); NRBC Flagged by Analyzer 0 % (0-5); Neutrophil # 9.59 X10^3/uL (2.7-7.7); Neutrophil % 82.9 % (47-70); Platelet Count 173 K/mm3 (150-450); RBC Distribution Width CV 12.3 % (11.6-14.6); RBC Distribution Width SD 40.1 fl (35.1-43.9); Red Blood Count 3.51 M/mm3 (4.2-5.4); White Blood Count 11.6 K/mm3 (4.4-11.0)
--- NOTE | 2024-08-07 14:12 | POSTOPAN2_ITS ---
Anesthesia Postop Eval I Sum Postop Eval Completion status Anesthesia document: Postop Eval 1 completed: Yes Anesthesia Postop Eval I Summary Anesthesia Postop Eval I Summary: Anesthesia Postop Eval I: Assessment Summary Airway patent Yes 08/07/24 08:47 BUSINESS INSURANCE AGENT.JCLI Spontaneous unlabored Yes 08/07/24 08:47 BUSINESS INSURANCE AGENT.SARAI respirations Mental status Awake,Calm 08/07/24 08:47 BUSINESS INSURANCE AGENT.JOSELI nausea No 08/07/24 08:47 BUSINESS INSURANCE AGENT.JOSELI Vomiting No 08/07/24 08:47 BUSINESS INSURANCE AGENT.SARAI Anesthesia Postop Eval I: Fluid Summary Crystalloid volume administer 2,000 08/07/24 08:47 BUSINESS INSURANCE AGENT.JCLI (ml) Colloids volume administered ( ml) Blood Product volume administered (ml) Total IV fluid infused 2,000 08/07/24 08:47 BUSINESS INSURANCE AGENT.SARAI Anesthesia Postop Eval I: Summary Notes Anesthesia Complication No 08/07/24 08:47 BUSINESS INSURANCE AGENT.SARAI Anesthesia Complication Comment: Post-operative progress note Anesthesia: Postop Eval II Evaluation Mental status: Awake and Calm Pain Level: 1 nausea: No Vomiting: No Complications Anesthesia Complication: No
--- NOTE | 2024-08-07 14:12 | PCM.POSTANE2 ---
Anesthesia Postop Eval I Sum Postop Eval Completion status Anesthesia document: Postop Eval 1 completed: Yes Anesthesia Postop Eval I Summary Anesthesia Postop Eval I Summary: Anesthesia Postop Eval I: Assessment Summary Airway patent Yes 08/07/24 08:47 ACTIVE DIRECTORY SYSTEMS ADMINISTRATOR.JCLI Spontaneous unlabored Yes 08/07/24 08:47 ACTIVE DIRECTORY SYSTEMS ADMINISTRATOR.SARAI respirations Mental status Awake,Calm 08/07/24 08:47 ACTIVE DIRECTORY SYSTEMS ADMINISTRATOR.JOSELI nausea No 08/07/24 08:47 ACTIVE DIRECTORY SYSTEMS ADMINISTRATOR.JOSELI Vomiting No 08/07/24 08:47 ACTIVE DIRECTORY SYSTEMS ADMINISTRATOR.SARAI Anesthesia Postop Eval I: Fluid Summary Crystalloid volume administer 2,000 08/07/24 08:47 ACTIVE DIRECTORY SYSTEMS ADMINISTRATOR.JCLI (ml) Colloids volume administered ( ml) Blood Product volume administered (ml) Total IV fluid infused 2,000 08/07/24 08:47 ACTIVE DIRECTORY SYSTEMS ADMINISTRATOR.SARAI Anesthesia Postop Eval I: Summary Notes Anesthesia Complication No 08/07/24 08:47 ACTIVE DIRECTORY SYSTEMS ADMINISTRATOR.SARAI Anesthesia Complication Comment: Post-operative progress note Anesthesia: Postop Eval II Evaluation Mental status: Awake and Calm Pain Level: 1 nausea: No Vomiting: No Complications Anesthesia Complication: No
[2024-08-07] MEDS: Enoxaparin 40 MG/0.4 ML Syringe SC (20:17)
[2024-08-08 00:45] VITALS: BP 98/58; PULSE 93; RESP 16; TEMP 36.7; O2SAT 97
[2024-08-08] MEDS: Acetaminophen 500 MG Tablet 1000 MG PO ×3 (00:46→11:42)
[2024-08-08] MEDS: Ketorolac 30 MG/ML Syringe IV (03:27)
[2024-08-08] MEDS: 0.9% Saline Lock 10 ML Syringe IV (03:28)
[2024-08-08 03:34] VITALS: BP 103/64; PULSE 90; RESP 16; TEMP 36.6; O2SAT 97
[2024-08-08 06:26] LABS: Hematocrit 27.3 % (37-47); Hemoglobin 9.4 g/dL (12.0-15.0); Mean Corp Hgb Conc 34.4 g/dL (32-36); Mean Corpuscular Hgb 31.5 pg (27.0-32.0); Mean Corpuscular Volume 91.6 fL (81-99); Mean Platelet Vol. 10.6 fl (6.2-12.0); Platelet Count 133 K/mm3 (150-450); RBC Distribution Width CV 12.5 % (11.6-14.6); RBC Distribution Width SD 41.2 fl (35.1-43.9); Red Blood Count 2.98 M/mm3 (4.2-5.4); White Blood Count 8.9 K/mm3 (4.4-11.0)
[2024-08-08 08:00] VITALS: BP 94/69; PULSE 91; RESP 16; TEMP 36.3
--- NOTE | 2024-08-08 08:26 | DCINST_ITS ---
Discharge Instructions Diet Discharge Diet: No restrictions DC O2, CPAP, BIPAP needs Home O2 Discharge instructions: No Dressing / Incision Discharge Activity: May Not Drive (for 2 weeks or while taking narcotic pain medications.), May Shower and May Take a Tub Bath (in 7 days) May shower in (days): 0 May resume sexual activity in: 4-6 weeks Weight Bearing Status: Full weight bearing Lifting Restrictions: 20 pounds Dressing / Incision Call your doctor if your incision/area has: Continuous Slow Oozing, Sudden Increased Bleeding, Increased Pain/ Swelling, Increased Redness and Foul Smelling Discharge Call your doctor if you observe: Fever of 101 or Higher and Using more than 1 pad per hour (for 2 hours) Suture Line Care: Avoid Pulling/Pushing and Avoid Pinching/Bending Cleanse incision/area with: Soap & Water and Keep Dressing Clean & Dry Follow Up Care Please Follow Up With: Mariela Abbasi MD When: Call [phone] to make an appointment for an incision check in 1-2 weeks. Test Results: Test results from this visit will be discussed in further detail at your follow- up appointment, if applicable. Discharge Plan Admission Admit Date/Time: 08/07/24 05:15 Attending Provider: Mariela Abbasi Primary Care Provider: Care PhysicianLindy Primary Discharge Orders/Prescriptions Prescriptions: New oxycodone-acetaminophen [Percocet] 5-325 mg tablet 1 tab PO Q4H PRN (Reason: pain) 7 Days Qty: 20 0RF naproxen 500 mg tablet 500 mg PO BID PRN PRN (Reason: Pain) Qty: 30 1RF No Action PNV no.63-iron,qbnxircm-VS-ari 27 mg iron- 800 mcg-200 mg capsule 1 cap PO DAILY enoxaparin [Lovenox] 40 mg/0.4 mL syringe 40 mg subcut DAILY Qty: 4 12RF Referrals / Follow Up: Care PhysicianLindy Primary [Primary Care Provider] - Disposition Disposition (needs filled in before D/C Order can be placed): Home, Self Care
[2024-08-08] MEDS: Naproxen 500 MG Tablet PO (09:03)
[2024-08-08] MEDS: Senna/Docusate Sodium 1 Tablet PO (09:03)
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
--- NOTE | 2024-08-08 10:59 | PCM.PN.OB ---
Subjective Subjective Patient doing well without complaints. Tolerating PO. Ambulating and voiding without difficulty. feeding well. Denies chest pain, shortness of breath, calf pain/swelling, fevers, chills, lightheadedness. Objective Data Objective Data Vital Signs: Vital Signs Temp Pulse Resp BP Pulse Ox O2 Del Method 97.4 F L 91 16 94/69 97 Room Air 08/08/24 08:00 08/08/24 08:00 08/08/24 08:00 08/08/24 08:00 08/08/24 03:34 08/08/24 03:34 Oxygen Delivery Method Room Air Weight: 147 lb Body Mass Index (BMI) 27.8 Intake & Output: Intake and Output for Last 24 Hours 08/06/24 08/07/24 08/08/24 23:59 23:59 23:59 Intake Total 2370.0 / 2370.0 Output Total 1900 / 1900 150 / 150 Balance 470.0 / 470.0 -150 / -150 Lab / Micro Data 08/08/24 06:05 Labs: Laboratory Results - last 24 hr 08/07/24 14:00: WBC 11.6 H, RBC 3.51 L, Hgb 10.8 L, Hct 31.7 L, MCV 90.3, MCH 30.8, MCHC 34.1, RDW Std Deviation 40.1, RDW Coeff of Kirt 12.3, Plt Count 173, MPV 10.4, Immature Gran % (Auto) 0.900, Neut % (Auto) 82.9 H, Lymph % (Auto) 12.0 L, [place] % (Auto) 3.9, Eos % (Auto) 0.0, Baso % (Auto) 0.3, Absolute Neuts (auto) 9.6 H, Absolute Lymphs (auto) 1.39, Nucleated RBC % 0 08/08/24 06:05: WBC 8.9, RBC 2.98 L, Hgb 9.4 L, Hct 27.3 L, MCV 91.6, MCH 31.5, MCHC 34.4, RDW Std Deviation 41.2, RDW Coeff of [place] 12.5, Plt Count 133 L, MPV 10.6 ROS Constitutional Constitutional: Reports systems reviewed and no addt'l complaints, except as documented Cardiovascular Cardiovascular: Reports systems reviewed and no addt'l complaints, except as documented Respiratory/Chest Respiratory/Chest: Reports systems reviewed and no addt'l complaints, except as documented Gastrointestinal Gastrointestinal: Reports systems reviewed and no addt'l complaints, except as documented Physical Exam Const alert, oriented x3 and no apparent distress HEENT Head and Scalp: atraumatic Resp normal respiratory effort GI soft to palpation and non-tender Inspection: incision intact, healing well and drainage (none) Bimanual Exam - Vag & Uterus: uterus non-tender Uterus Palpation: uterus fundus firm (below Umbilicus) Assessment & Plan (1) delivery delivered: COMMENT: RLTCS SM boy 39 (2) Previous delivery affecting : COMMENT: growths q 4 weeks after 20 weeks, weekly nst 32 on RLTCS scheduled for 08/07 @ 7:15 with SM PLAN: Plan s/p LTCS PPD # 1 1. routine post care 2. breast feeding- support given 3. rh positive 4. rubella immune
--- NOTE | 2024-08-12 17:09 | NURSING ---
Follow up Phone call attempted. LVM
== END 2024-08-08 14:00 | disposition home or self-care (01) | DRG 540 ==
PROVIDERS: Obstetrics & Gynecology; Admitting Provider Obstetrics & Gynecology; Visit Provider Obstetrics & Gynecology
PROC: 10D00Z1 Extraction of Products of Conception, Low, Open Approach (ICD-10-PCS; CPT 59514; principal; 2024-08-07 07:00)
DX: O34.211 Maternal care for low transverse scar from previous cesarean delivery (principal); O69.81X0 Labor and delivery complicated by cord around neck, without compression, not applicable or unspecified; O99.892 Other specified diseases and conditions complicating childbirth; R76.0 Raised antibody titer; Z37.0 Single live birth; Z3A.39 39 weeks gestation of pregnancy; Z79.01 Long term (current) use of anticoagulants; Z87.59 Personal history of other complications of pregnancy, childbirth and the puerperium
CPT/HCPCS: 59050; 85025; 85027; 86780; 86850; 86900; 86901; A4216; J2405